=== PATIENT | male | born 1970 | race Caucasian/White ===

== ENCOUNTER 2020-12-23 09:56 | Emergency (ER) | payer OTHER ==
[~2020-12-23] VITALS: Ht 172.7 cm; Wt 90.9 kg
[~2020-12-23 09:56] MED LIST: CEFTIN500 MG PO; FLOMAX 0.40.4 MG/CAP PO; PERCOCET 325 MG1 TA2 PO; ZOFRAN 4MG T4 MG/TAB PO; ZYRTEC 10MG10 MG PO
[2020-12-23 13:22] VITALS: BP 136/64; PULSE 72; TEMP 98.1
== END 2020-12-23 13:22 | disposition home or self-care (01) ==
LOC: COL.ER 09:56
DX: S62.602A Fracture of unspecified phalanx of right middle finger, initial encounter for closed fracture (principal); S13.9XXA Sprain of joints and ligaments of unspecified parts of neck, initial encounter; S09.90XA Unspecified injury of head, initial encounter; N20.0 Calculus of kidney; Z88.6 Allergy status to analgesic agent; W11.XXXA Fall on and from ladder, initial encounter